=== PATIENT | male | born 1930 | race Caucasian/White ===

== ENCOUNTER 2016-09-29 10:22 | Inpatient (IN) | payer MEDICARE, MEDICAID ==
[~2016-09-29] VITALS: Ht 182.9 cm; Wt 82.6 kg
[2016-09-29 10:22] VITALS: BP 168/85; PULSE 71; RESP 12; TEMP 97.8; O2SAT 96
--- NOTE | 2016-09-29 10:22 | NUR ---
Patient presents to the emergency department with complaints of left leg weakness and unsteady gait yesterday from [id number] which has since resolved. Pt was sent by Dr Cotto office today, facial symmetry, equal hand crab backer and pedal pushes. No slurred speech. Patient does not remember what happened yesterday, denies any headache, dizziness, or any other complaints and said "today i feel fine, nothing is bothering me right now" will continue to monitor Addendum: 09/29/16 at [address] messer Progress note, Patient was unstable [id number] when he suddenly had blurred vision and lost sensation to his left lower leg.
--- NOTE | 2016-09-29 10:22 | NUR ---
Patient to ER bed 3 to gown for evaluation. Side rails up. assumed care of the pt
--- NOTE | 2016-09-29 10:38 | NUR ---
ER at bedside examining patient.
--- NOTE | 2016-09-29 10:47 | NUR ---
# 20 gauge angiocath placed to l wrist by Luigi HOPPER. Use of asceptic technique. Opsite placed over site. Blood return noted. Blood for lab drawn from site. Flushed with 10 cc of normal saline. No evidence of infiltration noted. Patient tolerated well.
--- NOTE | 2016-09-29 10:50 | NUR ---
Patient to radiology via [facility]
[2016-09-29 10:56] LABS: BASOPHILS # (AUTO) 0.1 K/uL (0.0-0.2); BASOPHILS % (AUTO) 0.9 % (0.0-2.0); EOSINOPHILS # (AUTO) 0.7 K/uL (0.0-0.4); EOSINOPHILS % (AUTO) 8.9 % (0.0-4.0); HEMATOCRIT 40.7 % (36-54); HEMOGLOBIN 13.6 g/dL (14.0-18.0); LYMPHOCYTES # (AUTO) 0.9 K/uL (1.0-5.5); LYMPHOCYTES % (AUTO) 11.8 % (20.5-51.5); MEAN CORPUSCULAR HEMOGLOBIN 30 pg (27-31); MEAN CORPUSCULAR HGB CONC 33 % (32-36); MEAN CORPUSCULAR VOLUME 90 fL (79.0-98.0); MONOCYTES # (AUTO) 0.7 K/uL (0.0-1.0); MONOCYTES % (AUTO) 9.4 % (1.7-9.3); PLATELET COUNT (AUTO) 129 K/uL (130-430); RED BLOOD CELL COUNT(AUTO) 4.55 MIL/uL (4.2-6.2); RED CELL DISTRIBUTION WIDTH 13.1 % (9.0-15.0); WHITE BLOOD COUNT (AUTO) 7.4 K/uL (4.8-10.8)
[2016-09-29] MEDS ORDERED: AMLO5TAB4 PO (11:06)
[2016-09-29] MEDS ORDERED: ASPI-1063 PO (11:06)
[2016-09-29] MEDS ORDERED: BECL8.7A5 INH (11:06)
[2016-09-29] MEDS ORDERED: ALLO100T PO (11:06)
[2016-09-29] MEDS ORDERED: ENAL5TAB85 PO (11:06)
[2016-09-29] MEDS ORDERED: SIMV40TA2 PO (11:06)
[2016-09-29] MEDS ORDERED: ALBMDI INH (11:06)
[2016-09-29] MEDS ORDERED: ESCI20TA PO (11:06)
[2016-09-29] MEDS ORDERED: SODI650T PO (11:06)
[2016-09-29] MEDS ORDERED: FINA5TAB3 PO (11:06)
--- NOTE | 2016-09-29 11:08 | NUR ---
Patient back from radiology
--- NOTE | 2016-09-29 11:09 | NUR ---
Medication reconciliation completed with information provided by Dr. Aleman's office. Any prior medication reconciliation on file was reviewed and corrected.
[2016-09-29 11:10] LABS: ANION GAP 8 (5-15); CALCIUM 9.4 mg/dL (8.4-11.0); CHLORIDE 105 mmol/L (98-107); GLUCOSE 263 mg/dL (70-99); POTASSIUM 4.3 mmol/L (3.5-5.1); SODIUM SERUM 141 mmol/L (136-145); UREA NITROGEN, BLOOD 23 mg/dL (8-21)
[2016-09-29 11:15] LABS: ALANINE AMINOTRANSFERASE 28 U/L (12-78); ALBUMIN 3.3 g/dL (3.4-4.8); ASPARTATE AMINOTRANSFERASE 23 U/L (10-37); TOTAL BILIRUBIN 0.4 mg/dL (0.0-1.0); TOTAL PROTEIN, SERUM 6.7 g/dL (6.4-8.3)
[2016-09-29 11:44] LABS: BILIRUBIN,URINE NEGATIVE (NEGATIVE); CLARITY/URINE CLEAR (CLEAR); COLOR,URINE YELLOW (YELLOW); GLUCOSE,URINE 3+ (NEGATIVE); KETONES,URINE NEGATIVE (NEGATIVE); LEUKOCYTE ESTERASE ,URINE NEGATIVE (NEGATIVE); NITRITE, URINE NEGATIVE (NEGATIVE); PH,URINE 6.5 (5.0-8.0); PROTEIN URINE 3+ (NEGATIVE); UROBILINOGEN,URINE 0.2 (0.2-1.0)
[2016-09-29 11:49] LABS: BLOOD, URINE TRACE (NEGATIVE)
[2016-09-29 12:01] LABS: BACTERIA,URINE RARE /HPF (None Seen); WBC,URINE 0-3 /HPF (0-3)
--- NOTE | 2016-09-29 12:19 | NUR ---
dr bhatt speaking to pt regarding POC
--- NOTE | 2016-09-29 12:21 | NUR ---
care and report endorsed to dylan HOPPER
--- NOTE | 2016-09-29 12:25 | NUR ---
attempted to call son amaris for med rec, no answer, left message to call back
--- NOTE | 2016-09-29 12:52 | NUR ---
Pt on stable condition, follows commands, denies pain or discomfort, VSS. skin pink and warm, no facial dropping, no arm drift noted.
--- NOTE | 2016-09-29 14:25 | NUR ---
Patient will be admitted to care of Dr Rock . Admitted to Tele unit. Will go to room 135. Belongings list completed. Summary report printed. Report given to Admitting RN.
--- NOTE | 2016-09-29 14:27 | NUR ---
ADMISSION NOTE Received patient from ER via gurney. Patient admitted with diagnosis of POSSIBLE STROKE. Patient is awake, alert, oriented X 3-4. Patient oriented to hospital room, call light, toileting, pain management and safety-teach back done. Patient informed that JHOAN will be THE nurse and that their room number is 119A. Personal belongings checked and Belongings List documented. Call light within reach.
[2016-09-29 14:36] VITALS: BP 143/87; PULSE 85; RESP 20; TEMP 98.4; O2SAT 98
--- NOTE | 2016-09-29 15:39 | NUR ---
Cardio Consult: for Dr. Rocha (Dr. Stinson is evaluation manager), regarding CVA, ordered by Dr. Martinez, spoke with Aggie.
[2016-09-29] MEDS ORDERED: DEXTROSE 50% JECT 50 ML DISP.SYRIN IVP PRN (16:45)
[2016-09-29 17:01] VITALS: BP 160/80; PULSE 84; RESP 22; TEMP 97.1
[2016-09-29] MEDS: INSULIN REGULAR, HUMAN 100 UNITS/ML, 10 ML VIAL (novoLIN R) SUBCUT PRN (18:35)
--- NOTE | 2016-09-29 19:01 | NUR ---
Closing Note Patient needs met throughout shift. Patient resting at this time. Family has been updated with plan of care. Will continue to monitor until patient care is endorsed to oncoming shift nurse.
--- NOTE | 2016-09-29 19:30 | NUR ---
PM assessment: Alert and oriented. Speech clear. Denies pain. Answers questions appropriatley. Encouraged to use call light when ambulating to bathroom. Patient verbalized understanding. Bed in low position. Call light in reach.
[2016-09-29 20:11] VITALS: BP 155/91; PULSE 70; RESP 16; TEMP 98.4; O2SAT 95
[2016-09-29] MEDS ORDERED: ESCITALOPRAM OXALATE 10 MG TABLET PO SCH (21:00)
[2016-09-29] MEDS ORDERED: CITALOPRAM HYDROBROMIDE 20 MG TABLET PO SCH (21:00)
--- NOTE | 2016-09-29 21:07 | NUR ---
CONSULT CALLED FOR DOCTOR LAINE SPOKE WITH LINDSAY WALTERSA
[2016-09-29] MEDS: SODIUM BICARBONATE 650 MG TABLET PO SCH (21:14)
--- NOTE | 2016-09-29 22:00 | NUR ---
Rounds: Patient awake and responding easily to verbal stimuli. Denies pain at this time. Voiding without difficulty. Call light in reach and bed in low position.
[2016-09-29 23:58] VITALS: BP 130/76; PULSE 62; RESP 18; TEMP 97.7; O2SAT 94
--- NOTE | 2016-09-30 | NUR ---
Rounds: Restful. Respirations unlabored and regular. No distress noted. BS was 131 at 2300. No insulin coverage necessary at this time. Bed in low position with call light in reach.
--- NOTE | 2016-09-30 02:30 | NUR ---
Rounds: Respirations continue unlabored and regular. No notable s/s of pain or distress at this time. Side rails up x2 with bed in low position. Call light within reach.
[2016-09-30 04:12] VITALS: BP 147/87; PULSE 74; RESP 18; TEMP 98; O2SAT 94
[2016-09-30] MEDS: INSULIN REGULAR, HUMAN 100 UNITS/ML, 10 ML VIAL (novoLIN R) SUBCUT PRN ×3 (05:47→17:46)
--- NOTE | 2016-09-30 06:23 | NUR ---
Closing Assessment: Patient continues restful. No distress noted. BS this AM was 172. Pt. received 2 units of regular insulin. Voiding without difficulty. No stroke symptoms this shift. Side rails up with bed in low position and call light in reach.
--- NOTE | 2016-09-30 07:45 | NUR ---
Initial Note Received pt in bed, no s/s of distress or sob noted, pt has no c/o pain at this time, pt in stable condition. Pt aaox4, verbal. No facial droopiness or deficits noted. IV catheter patent, no signs of infection or infiltration noted. Bed at lowest position, call light within reach, will continue to monitor pt for any changes. Fall precautions in place.
[2016-09-30 08:00] VITALS: BP 146/75; PULSE 66; RESP 17; TEMP 98.6; O2SAT 97
[2016-09-30] MEDS: SODIUM BICARBONATE 650 MG TABLET PO SCH ×2 (08:19→16:11)
[2016-09-30] MEDS ORDERED: ASPIRIN 81 MG TABLET(ECOTRIN) PO SCH (09:00)
[2016-09-30] MEDS ORDERED: ENALAPRIL MALEATE 5 MG TABLET (VASOTEC) PO SCH (09:00)
[2016-09-30] MEDS ORDERED: FINASTERIDE 5 MG TABLET (PROSCAR) PO SCH (09:00)
[2016-09-30] MEDS ORDERED: amLODIPine BESYLATE 5 MG TABLET PO SCH (09:00)
--- NOTE | 2016-09-30 10:10 | NUR ---
Rounds Pt in bed, no s/s of distress or sob noted, pt has no c/o pain at this time, pt in stable condition, pt resting comfortably, will continue to monitor pt for any changes.
[2016-09-30] MEDS ORDERED: CLOPIDOGREL BISULFATE 75 MG TABLET PO ONE (12:15)
--- NOTE | 2016-09-30 12:15 | NUR ---
Rounds Pt laying in bed, no s/s of distress or sob noted, pt has no c/o pain at this time, pt in stable condition, pt resting comfortably, will continue to monitor pt for any changes.
[2016-09-30 12:34] VITALS: BP 128/68; PULSE 76; RESP 16; TEMP 97.2; O2SAT 98
[2016-09-30 13:05] LABS: ANION GAP 5 (5-15); CALCIUM 9.1 mg/dL (8.4-11.0); CHLORIDE 106 mmol/L (98-107); CREATININE 2.06 mg/dL (0.55-1.30); GLUCOSE 282 mg/dL (70-99); POTASSIUM 4.5 mmol/L (3.5-5.1); SODIUM SERUM 137 mmol/L (136-145); UREA NITROGEN, BLOOD 25 mg/dL (8-21)
--- NOTE | 2016-09-30 13:59 | NUR ---
CALLED VASCULAR SURGEON DR MCKAY RE: CAROTID STENOSIS. LEFT A VOICE MESSAGE ON HIS CELL
--- NOTE | 2016-09-30 14:45 | NUR ---
MD CALL Spoke with Dr Terrell in regards to new consult, per md to order cta head and neck with contrast but was notified that patients BUN and Creatinine are high, per md to cancel those orders and order a MRA brain and neck but made aware that it cannot be done until Monday because that is when MRI is back, per md ok.
--- NOTE | 2016-09-30 15:20 | NUR ---
MD REYNOSO Spoke with Dr Martinez in regards to concerns that the family has about the care of the pt, per md he will come in and speak with family and pt at 1700. Director spoke with family and concerns were addressed.
[2016-09-30 16:29] VITALS: BP 152/96; PULSE 71; RESP 18; TEMP 97.5; O2SAT 95
--- NOTE | 2016-09-30 16:38 | NUR ---
Rounds Pt sitting up in chair talking to visitor, no s/s of distress or sob noted, pt has no c/o pain at this time, pt in stable condition, pt resting comfortably, will continue to monitor pt for any changes.
[2016-09-30] MEDS ORDERED: SITA100T7 PO (17:27)
[2016-09-30] MEDS ORDERED: LORA10TA7 PO (17:34)
[2016-09-30] MEDS ORDERED: ERGO500043 PO (17:34)
[2016-09-30 17:58] LABS: CHOLESTEROL 192 mg/dL (<200); HDL CHOLESTEROL 42 mg/dL (>45); LDL CHOLESTEROL 92 mg/dL (<100); TRIGLYCERIDES 258 mg/dL (30-150)
--- NOTE | 2016-09-30 18:25 | NUR ---
Closing Note Pt in bed, no s/s of distress or sob noted, pt has no c/o pain at this time, pt in stable condition. Pt aaox4, verbal. No facial droopiness or deficits noted. IV catheter patent, no signs of infection or infiltration noted. Bed at lowest position, call light within reach, will endorse care of pt to incoming nurse. Fall precautions in place. Addendum: 09/30/16 at 1826 by Maria Isabel Tsai RN awaiting lab results for d/c home
--- NOTE | 2016-09-30 18:37 | NUR ---
PAGED DOCTOR AT [facility] (DR ARELLANO O/C) , ELIOT JESUS & HE SAID DR ARELLANO IS TAKE UP OPERATOR.
[2016-09-30 18:40] VITALS: BP 128/70; PULSE 68; RESP 17; TEMP 98.6; O2SAT 97
--- NOTE | 2016-09-30 18:45 | NUR ---
MD CALL Spoke with Dr Rascon in regards to results of lipid panel, per ok to d/c home as ordered.
[2016-09-30] MEDS ORDERED: CLOP75TA2 PO (18:49)
[2016-09-30] MEDS ORDERED: LIP10 PO (18:49)
--- NOTE | 2016-09-30 18:59 | NUR ---
D/C Patient Patient given medication reconciliation form and D/C instructions. Exit Care provided. Patient verbalized understanding. MD discussed with patient the results and treatment provided. Ambulatory with steady gait for discharge to home. Patient in stable condition, ID band removed. IV catheter removed, intact and dressing applied, no active bleeding. Rx of plavix and lipitor given. Patient educated on pain management. All belongings sent with patient. Discharge plan and medication reconciliation reviewed with wan and she verbalized understanding.
[2016-10-01] MEDS ORDERED: CLOPIDOGREL BISULFATE 75 MG TABLET PO SCH (09:00)
--- NOTE | 2016-10-04 09:34 | NUR ---
Discharge Follow Up Phone Call MECHANICAL INTERN phoned patient, , and spoke with patient's granddaughter. She stated that patient was currently at the PCP office. Patient's blood sugar has been out of control since returning home, with numbers in the 300s. Patient refused to go to the hospital. Patient's prescriptions were filled and he is taking his medication as directed. They had no other questions or concerns.
== END 2016-09-30 19:00 | disposition home or self-care (01) | DRG 65 ==
LOC: SED 10:22 → STU 14:14
PROVIDERS: ADMIT Internal Medicine Hospice and Palliative Medicine; ATTEND Internal Medicine Hospice and Palliative Medicine
DX: I63.232 Cerebral infarction due to unspecified occlusion or stenosis of left carotid arteries (principal); E44.1 Mild protein-calorie malnutrition; J44.9 Chronic obstructive pulmonary disease, unspecified; I10 Essential (primary) hypertension; E11.22 Type 2 diabetes mellitus with diabetic chronic kidney disease; I12.9 Hypertensive chronic kidney disease with stage 1 through stage 4 chronic kidney disease, or unspecified chronic kidney disease; M10.9 Gout, unspecified; R27.0 Ataxia, unspecified; N40.0 Benign prostatic hyperplasia without lower urinary tract symptoms; Z79.02 Long term (current) use of antithrombotics/antiplatelets; Z86.73 Personal history of transient ischemic attack (TIA), and cerebral infarction without residual deficits; Z87.442 Personal history of urinary calculi; Z87.891 Personal history of nicotine dependence; N18.3 Chronic kidney disease, stage 3 (moderate); Z68.24 Body mass index [BMI] 24.0-24.9, adult
CPT/HCPCS: 36415; 70450-TC; 70551; 71010; 76770; 80048; 80053; 80061; 81000-TC; 82962; 84484; 85025; 85379; 93005; 93306; 93880; 99285; J1815